=== PATIENT | male | born 1990 | race African-American/Black ===

== ENCOUNTER 2020-12-11 21:07 | Emergency (ER) | payer BC, MEDICAID ==
[~2020-12-11] VITALS: Ht 182.9 cm; Wt 82.0 kg
[2020-12-11 22:00] LABS: HEMOGLOBIN. 9.3 g/dL (14.0-18.0); MEAN CORPUSCULAR HEMOGLOBIN 26.6 pg (28.0-32.0); MEAN CORPUSCULAR VOLUME 82.8 fL (80.0-94.0); MEAN PLATELET VOLUME 8.1 fl (7.4-10.4); PLATELET 189 x1000/uL (130-400); RED BLOOD CELL COUNT 3.51 mill/uL (4.7-6.1); RED CELL DISTRIBUTION WIDTH 17.1 % (11.6-14.6)
[2020-12-11 22:09] LABS: INR 1.1; PROTHROMBIN TIME 11.8 sec (9.6-11.0)
[2020-12-11 22:10] LABS: CHLORIDE 104 mEq/L (98-107)
[2020-12-11 22:33] VITALS: BP 122/67
[2020-12-11 22:45] LABS: PLATELET ESTIMATE NORMAL
== END 2020-12-11 22:34 | disposition home or self-care (01) ==
LOC: ER 21:07
DX: E87.1 Hypo-osmolality and hyponatremia (principal)
CPT/HCPCS: 36415; 80053; 85025; 99283

== ENCOUNTER 2021-01-02 13:16 | Emergency (ER) | payer BC, MEDICAID ==
[~2021-01-02] VITALS: Ht 182.9 cm; Wt 81.0 kg
[2021-01-02] MEDS ORDERED: LIDOCAINE HCL 1% 20ML VIAL (Pyxis) INJ INFIL ONE (13:45)
[2021-01-02] MEDS ORDERED: CEFTRIAXONE SODIUM 500 MG/VIAL IM ONE (13:45)
[2021-01-02] MEDS ORDERED: EMTR1TAB11 MT (14:21)
[2021-01-02] MEDS ORDERED: DOXY100C2 MT (14:21)
[2021-01-02] MEDS ORDERED: DOLU50TA MT (14:21)
[2021-01-02 14:41] VITALS: BP 119/67
[2021-01-05 04:09] LABS: NEISSERIA GONORRHOEAE NAA Negative (Negative)
== END 2021-01-02 15:41 | disposition home or self-care (01) ==
LOC: ER 14:38
DX: Z20.2 Contact with and (suspected) exposure to infections with a predominantly sexual mode of transmission (principal); Z79.899 Other long term (current) drug therapy
CPT/HCPCS: 87491; 87591; 96372; 99283; J0696; J3490

== ENCOUNTER 2021-04-11 22:25 | Emergency (ER) | payer MEDICAID ==
[~2021-04-11] VITALS: Ht 182.9 cm; Wt 78.0 kg
[~2021-04-11 22:25] MED LIST: DOLU50TA MT; DOXY100C2 MT; EMTR1TAB11 MT
[2021-04-12] MEDS ORDERED: DIPH25CA83 MT (00:28)
[2021-04-12] MEDS ORDERED: DIPHENHYDRAMINE 25MG CAPSULE PO ONE (00:30)
[2021-04-12 00:44] VITALS: BP 128/78
== END 2021-04-12 00:45 | disposition home or self-care (01) ==
LOC: ER 22:25
DX: R21 Rash and other nonspecific skin eruption (principal); Z79.899 Other long term (current) drug therapy
CPT/HCPCS: 99282; Q0163

== ENCOUNTER 2021-05-29 14:29 | Emergency (ER) | payer MEDICAID ==
[~2021-05-29] VITALS: Ht 182.9 cm; Wt 77.0 kg
[~2021-05-29 14:29] MED LIST changes: +DIPH25CA83 MT; -DOXY100C2 MT; +DOXY100C5 MT
[2021-05-29 14:38] VITALS: BP 123/68
[2021-05-29 18:07] LABS: CHLORIDE 104 mEq/L (98-107)
[2021-05-29] MEDS ORDERED: EMTR1TAB11 MT (18:25)
[2021-05-29] MEDS ORDERED: RALT400T MT (18:25)
== END 2021-05-29 18:46 | disposition home or self-care (01) ==
LOC: ER 14:29
DX: A64 Unspecified sexually transmitted disease (principal); Z79.899 Other long term (current) drug therapy
CPT/HCPCS: 36415; 80053; 99283; Z7610

== ENCOUNTER 2021-08-14 08:29 | Emergency (ER) | payer MEDICAID ==
[~2021-08-14] VITALS: Ht 182.9 cm; Wt 82.0 kg
[~2021-08-14 08:29] MED LIST changes: +RALT400T MT
[2021-08-14 08:32] VITALS: BP 127/57
[2021-08-14] MEDS ORDERED: CEFTRIAXONE SODIUM 1 G/VIAL IM ONE (08:45)
[2021-08-14] MEDS ORDERED: LIDOCAINE HCL 1% 20ML VIAL (Pyxis) INJ INFIL ONE (08:45)
[2021-08-14] MEDS ORDERED: RALT400T MT (09:14)
[2021-08-14] MEDS ORDERED: EMTR200C3 MT (09:14)
[2021-08-14] MEDS ORDERED: VIRE MT (09:14)
[2021-08-14] MEDS ORDERED: EMTRICITABINE 200MG CAPSULE PO ONE (09:15)
[2021-08-14] MEDS ORDERED: RALTEGRAVIR 400MG TABLET PO ONE (09:15)
[2021-08-14] MEDS ORDERED: TENOFOVIR 300MG TABLET PO ONE (09:15)
[2021-08-17 04:09] LABS: NEISSERIA GONORRHOEAE NAA Negative (Negative)
== END 2021-08-14 10:32 | disposition home or self-care (01) ==
LOC: ER 08:43
DX: A64 Unspecified sexually transmitted disease (principal); Z79.899 Other long term (current) drug therapy
CPT/HCPCS: 87491; 87591; 96372; 99284; J0696; J3490

== ENCOUNTER 2021-10-03 09:58 | Emergency (ER) | payer MEDICAID ==
[~2021-10-03] VITALS: Ht 182.9 cm; Wt 78.0 kg
[~2021-10-03 09:58] MED LIST changes: +EMTR200C3 MT; +VIRE MT
[2021-10-03 10:06] VITALS: BP 133/77
[2021-10-03] MEDS ORDERED: RALT400T MT (10:31)
[2021-10-03] MEDS ORDERED: EMTR1TAB11 MT (10:31)
== END 2021-10-03 10:57 | disposition home or self-care (01) ==
LOC: ER 09:58
DX: Z76.0 Encounter for issue of repeat prescription (principal); Z20.2 Contact with and (suspected) exposure to infections with a predominantly sexual mode of transmission
CPT/HCPCS: 99281

== ENCOUNTER 2022-01-06 02:27 | Emergency (ER) | payer MEDICAID ==
[~2022-01-06] VITALS: Ht 182.9 cm; Wt 77.0 kg
[2022-01-06 03:00] VITALS: BP 113/56
[2022-01-06 03:50] LABS: HEMATOCRIT 43.3 % (42.0-52.0); HEMOGLOBIN 14.5 g/dL (14.0-18.0); MEAN CORPUSCULAR HEMOGLOBIN 29.1 pg (28.0-32.0); PLATELET 147 x1000/uL (130-400); RED BLOOD CELL COUNT 4.98 mill/uL (4.7-6.1); RED CELL DISTRIBUTION WIDTH 12.7 % (11.6-14.6)
[2022-01-06 03:59] LABS: CHLORIDE 106 mEq/L (98-107)
[2022-01-06] MEDS ORDERED: LIDOCAINE HCL 1% 20ML VIAL (Pyxis) INJ INFIL ONE (04:15)
[2022-01-06] MEDS ORDERED: CEFTRIAXONE SODIUM 500 MG/VIAL IM ONE (04:15)
[2022-01-06] MEDS ORDERED: EMTR1TAB11 MT (04:19)
[2022-01-06] MEDS ORDERED: DOXY100C5 MT (04:19)
[2022-01-06] MEDS ORDERED: RALT400T MT (04:19)
[2022-01-07 08:07] LABS: HIV SCREEN 4G Non Reactive (Non Reactive)
== END 2022-01-06 04:26 | disposition home or self-care (01) ==
LOC: ER 02:27
DX: Z20.2 Contact with and (suspected) exposure to infections with a predominantly sexual mode of transmission (principal)
CPT/HCPCS: 36415; 80053; 85027; 86592; 86593; 86780; 87389; 96372; 99283; J0696; J3490

== ENCOUNTER 2022-02-25 16:15 | Emergency (ER) | payer MEDICAID ==
[~2022-02-25] VITALS: Ht 182.9 cm; Wt 77.0 kg
[2022-02-25] MEDS ORDERED: EMTR1TAB11 MT (20:06)
[2022-02-25 20:16] VITALS: BP 118/78
== END 2022-02-25 20:16 | disposition home or self-care (01) ==
LOC: ER 16:15
DX: Z20.2 Contact with and (suspected) exposure to infections with a predominantly sexual mode of transmission (principal)
CPT/HCPCS: 99281